=== PATIENT | female | born 1965 ===

== ENCOUNTER 2017-06-12 10:36 | Inpatient (IN) | payer MEDICAID ==
[2017-06-12 10:53] VITALS: BMI 26.2
[2017-06-12] MEDS ORDERED: Aspirin 325 mg EC Tablets PO STA (11:26)
[2017-06-12] MEDS ORDERED: Albuterol-Ipratrop 3 mg / 0.5 (3 ml) UD INH STA (11:27)
--- NOTE | 2017-06-12 11:28 | C.PDOC ---
History Of Present Illness 51 y/o female with PMHx of Asthma presents to ED with complaints of chest pain , sob and cough since yesterday with associated x2 episodes of vomiting. Patient states she has inhaler at home but did not improve symptoms which prompted visit to ED. Patient is speaking in full sentences and admits to chills , denies sick contacts, fever, diarrhea or any other complaints at this time. PMD: Dr. Vinicio Velazquez Time Seen by Provider: 06/12/17 11:04 Chief Complaint (Nursing): Shortness Of Breath History Per: Patient History/Exam Limitations: no limitations Onset/Duration Of Symptoms: Days Current Symptoms Are (Timing): Still Present Initiating Event: Upper Respiratory Illness Past Medical History Reviewed: Historical Data, Nursing Documentation, Vital Signs Vital Signs: Last Vital Signs Temp 98.0 F 06/12/17 16:06 Pulse 79 06/12/17 16:06 Resp 20 06/12/17 16:06 BP 110/68 06/12/17 16:06 Pulse Ox 97 06/12/17 16:06 - Medical History PMH: Asthma, HTN, Hypercholesterolemia Surgical History: Coronary Stent Family History: States: No Known Family Hx - Social History Hx Tobacco Use: No Hx Alcohol Use: No Hx Substance Use: No - Immunization History Hx Tetanus Toxoid Vaccination: No Hx Influenza Vaccination: No Hx Pneumococcal Vaccination: No Review Of Systems Constitutional: Negative for: Fever, Chills Cardiovascular: Positive for: Chest Pain Respiratory: Positive for: Cough, Shortness of Breath Gastrointestinal: Negative for: Nausea, Vomiting Skin: Negative for: Rash Physical Exam - Physical Exam Appears: Non-toxic, No Acute Distress Skin: Warm, Dry, No Rash Head: Atraumatic, Normacephalic Oral Mucosa: Moist Neck: Normal ROM, Supple Cardiovascular: Rhythm Regular Respiratory: Normal Breath Sounds, No Rales, No Rhonchi, No Wheezing Gastrointestinal/Abdominal: Soft, No Tenderness, No Guarding, No Rebound Extremity: Normal ROM, No Pedal Edema, Capillary Refill (<2 seconds) Neurological/Psych: Oriented x3, Normal Speech (Speaking in full sentences) ED Course And Treatment - Laboratory Results Result Diagrams: 06/12/17 11:47 06/12/17 11:47 ECG Rhythm: Sinus Tachycardia Interpretation Of ECG: Sinus tachycardia with premature supraventricular complexes Rate From EC O2 Sat by Pulse Oximetry: 97 (RA) Pulse Ox Interpretation: Normal - Radiology CXR: Read By Radiologist CXR Interpretation: Yes: Other (Mild biapical pleural thickening. Patchy bilateral lower lobe opacities may reflect atelectasis however developing pneumonia cannot be entirely excluded. Correlate clinically.) Medical Decision Making Medical Decision Making: Plan: Influenza Test, ECG, CXR, Blood work ordered Disposition Discussed With Dr.: Shilpi Hallman Doctor Will See Patient In The: Hospital - Disposition Disposition: HOSPITALIZED Disposition Time: 13:20 Condition: FAIR - Clinical Impression Clinical Impression: Pneumonia - PA / SHANK CUTTER / Resident Statement MD/DO has reviewed & agrees with the documentation as recorded. - Scribe Statement The provider has reviewed the documentation as recorded by the Herlindaibrhonda Blancas All medical record entries made by the Delmar were at my direction and personally dictated by me. I have reviewed the chart and agree that the record accurately reflects my personal performance of the history, physical exam, medical decision making, and the department course for this patient. I have also personally directed, reviewed, and agree with the discharge instructions and disposition.
[2017-06-12] MEDS ORDERED: Albuterol-Ipratrop 3 mg / 0.5 (3 ml) UD ONE (11:37)
[2017-06-12] MEDS ORDERED: Aspirin 325 mg EC Tablets PO ONE (11:37)
[2017-06-12 11:52] LABS: HEMOGLOBIN 12.9 g/dL (11.0-16.0)
[2017-06-12 11:57] LABS: BASO # 0.1 K/uL (0.0-0.2); BASO % 0.4 % (0.0-2.0); EOS # 0.1 K/uL (0.0-0.7); EOS % 0.5 % (0.0-4.0); MEAN CELL VOLUME 88.6 fL (81.0-99.0); MEAN CORPUSCULAR HEMOGLOBIN 30.2 pg (27.0-31.0); MEAN CORPUSCULAR HGB CONC 34.1 g/dL (33.0-37.0); MEAN PLATELET VOLUME 10.4 fL (7.2-11.7); MONO # 0.6 K/uL (0.0-0.8); MONO % 3.6 % (0.0-10.0); NEUT # 14.8 K/uL (1.8-7.0); NEUT % 89.5 % (50.0-75.0); PLATELET COUNT 237 K/uL (130-400); RBC 4.28 Mil/uL (3.80-5.20); RED CELL DISTRIBUTION WIDTH 13.1 % (11.5-14.5); WHITE BLOOD COUNT 16.6 K/uL (4.8-10.8)
[2017-06-12 12:03] LABS: ALB/GLOB RATIO 1.3 (1.0-2.1); ALBUMIN 4.4 g/dL (3.5-5.0); ALT/SGPT 31 U/L (9-52); AST/SGOT 26 U/L (14-36); BLOOD UREA NITROGEN 12 mg/dL (7-17); CALCIUM 9.1 mg/dl (8.6-10.4); GFR AFRICAN-AMERICAN > 60; GFR NON-AFRICAN AMERICAN > 60
--- NOTE | 2017-06-12 12:15 | RAD ---
HISTORY: cough sob, hx asthma COMPARISON: None available. TECHNIQUE: Chest PA and lateral FINDINGS: Examination limited by habitus. LUNGS: Mild biapical pleural thickening. Patchy bilateral lower lobe opacities. Please note that chest x-ray has limited sensitivity for the detection of pulmonary masses. PLEURA: No significant pleural effusion identified. No definite pneumothorax . CARDIOVASCULAR: Cardiomegaly. OSSEOUS STRUCTURES: No acute osseous abnormality identified. VISUALIZED UPPER ABDOMEN: Unremarkable. OTHER FINDINGS: None. IMPRESSION: Mild biapical pleural thickening. Patchy bilateral lower lobe opacities may reflect atelectasis however developing pneumonia cannot be entirely excluded. Correlate clinically.
[2017-06-12 12:28] LABS: EOSINOPHIL 1 % (0-4); LYMPHOCYTE 6 % (20-40); MONOCYTE 7 % (0-10); NEUTROPHIL 86 % (50-75); PLATELET ESTIMATE NORMAL (NORMAL); TOTAL CELLS COUNTED 100
[2017-06-12] MEDS ORDERED: Azithromycin 500 MG in Sodium Chloride 0.9% 250 ML IVPB STA (12:36)
[2017-06-12] MEDS ORDERED: cefTRIAXone IV 1 gm in Dextros 1 GM in Dextrose 5% In Water 50 ML IVPB STA (12:37)
[2017-06-12] MEDS ORDERED: cefTRIAXone IV 1 gm in Dextros 50 ML IVPB ONE (12:47)
[2017-06-12 16:07] VITALS: RESP 20
[2017-06-12] MEDS: Budesonide 0.5 mg/2 ml Inhal Susp UD INH SCH (21:20)
[2017-06-12] MEDS: Albuterol-Ipratrop 3 mg / 0.5 (3 ml) UD INH SCH (21:21)
[2017-06-12] MEDS: MethylPREDNISolone 40 mg Vial IVP SCH (21:46)
[2017-06-12] MEDS: (Novolog) Insulin Aspart, Recombinant 100 u/ml 10 ml vial SC SCH (22:50)
[2017-06-13] MEDS: Albuterol-Ipratrop 3 mg / 0.5 (3 ml) UD INH SCH ×4 (01:53→19:19)
[2017-06-13 07:25] LABS: HEMOGLOBIN 13.3 g/dL (11.0-16.0); MEAN CELL VOLUME 88.3 fL (81.0-99.0); MEAN PLATELET VOLUME 11.2 fL (7.2-11.7); RBC 4.43 Mil/uL (3.80-5.20); RED CELL DISTRIBUTION WIDTH 13.3 % (11.5-14.5); WHITE BLOOD COUNT 11.6 K/uL (4.8-10.8)
[2017-06-13] MEDS: (Novolog) Insulin Aspart, Recombinant 100 u/ml 10 ml vial SC SCH ×4 (08:17→21:32)
[2017-06-13 08:21] LABS: IRON 38 ug/dL (37-170)
[2017-06-13] MEDS: Budesonide 0.5 mg/2 ml Inhal Susp UD INH SCH ×2 (08:22→19:19)
[2017-06-13 08:23] LABS: BLOOD UREA NITROGEN 11 mg/dL (7-17); CALCIUM 9.6 mg/dl (8.6-10.4); GFR AFRICAN-AMERICAN > 60; GFR NON-AFRICAN AMERICAN > 60; HDL CHOLESTEROL 54 mg/dL (30-70)
[2017-06-13 08:41] LABS: LDL CHOLESTEROL 107 mg/dL (0-129)
[2017-06-13 08:49] LABS: % IRON SATURATION 12 (20-55); TOTAL IRON BINDING CAPACITY 322 ug/dL (250-450)
[2017-06-13 09:19] LABS: FOLATE > 20.0 ng/mL
--- NOTE | 2017-06-13 09:57 | HP ---
CHIEF COMPLAINT: Shortness of breath, coughing. HISTORY OF PRESENT ILLNESS: Ms. Tony Seo is a 51-year-old female with past medical history of asthma, came to the emergency room with chest pain, shortness of breath, coughing since yesterday associated with two episodes of vomiting. The patient states that she has inhaler at home, but it did not improve her symptoms which prompted her visit to emergency room. The patient is speaking in full sentence and admitted to be chills, denies sick contact. No diarrhea. PAST MEDICAL HISTORY: Asthma, hypertension, hypercholesterolemia. PAST SURGICAL HISTORY: Coronary artery stents. FAMILY HISTORY: Father and mother, noncontributory. HABITS: No smoking. No drugs. No ethanol. ALLERGIES: THE PATIENT IS NOT ALLERGIC WITH ANY MEDICATIONS. HOME MEDICATIONS: Reviewed by me. REVIEW OF SYSTEMS: The patient was seen and examined at the bedside also. No nausea, vomiting or diarrhea. Still coughing. Having shortness of breath. No fever. No chills. No hematuria. No hematochezia. PHYSICAL EXAMINATION: VITAL SIGNS: Temperature 99, pulse 80, blood pressure 111/64, respiratory rate 12 HEENT: Head: Normocephalic, atraumatic. Eyes: PERRLA. Extraocular muscles intact. Conjunctivae clear. Nose patent. Mucous membranes moist. NECK: Supple. No carotid bruits or thyromegaly. CHEST: Bilaterally symmetrical. HEART: S1, S2 positive. LUNGS: Clear to auscultation. ABDOMEN: Soft. Bowel sounds present. No organomegaly. EXTREMITIES: No edema, no cyanosis. NEUROLOGICAL: The patient is awake and alert, moving all four extremities. No focal deficits. LABORATORY DATA: White blood cells is 10.6, hemoglobin 12.9, hematocrit 38.0, platelet 237,000. Sodium 138, potassium 4.7, BUN 12, creatinine 0.6, glucose 124. Influenza type A and B is negative. ASSESSMENT AND PLAN: Ms. Tony Seo is a 51-year-old female came with coughing and shortness of breath. Her chest x-ray showed mild biapical pleural thickening of patchy bilateral lower lobe opacity may represent atelectasis; however; pneumonia cannot be entirely excluded, readmitted the patient, started on IV antibiotics. The patient's ID is Dr. Eisenberg, we called and consulted Dr. Mangia. The patient has history of hypertension and coronary artery disease, started Cozaar; hypercholesterolemia, started Crestor, albuterol and aspirin given. The patient is diabetic, started on metformin. Put on sliding scale. For deep venous thrombosis prophylaxis, given Lovenox. The patient was taking Plavix at home, restarted that. Put on Solu-Medrol. Gastrointestinal and deep venous thrombosis prophylaxis. Repeat labs. We will follow up. Katie Sandhu MD [facility]
[2017-06-13] MEDS ORDERED: BONE MEAL PO SCH (10:00)
[2017-06-13] MEDS ORDERED: VITAMIN D2 PO SCH (10:00)
[2017-06-13] MEDS: Enoxaparin 40 mg Syringe SC SCH (10:18)
[2017-06-13] MEDS: MethylPREDNISolone 40 mg Vial IVP SCH ×2 (10:18→21:34)
--- NOTE | 2017-06-13 11:08 | CARD ---
APPROVED REPORT EKG Measurement Heart [id number] <Conclusion> Sinus tachycardia with premature supraventricular complexes Otherwise normal ECG
[2017-06-13] MEDS ORDERED: Azithromycin 500 MG in Sodium Chloride 0.9% 250 ML IVPB SCH (13:00)
--- NOTE | 2017-06-13 13:17 | CP.PCM.CON ---
History of Present Illness - History of Present Illness History of Present Illness: Patient is a 51 year old female with a history of asthma, HTN, HLD who presented to the ER on 06/12/17 for complaints of 1 day history of chest pain, shortness of breath, cough associated with 2 episodes of vomiting. She used her inhaler at home, but she did not improve so she arrived at the ED. She is able to speak in full sentences. Recently was on vacation in the [place] for 2 weeks. Today, she states she no longer has chest pain, admits to feeling occasionally short of breath with cough productive of brownish sputum. Denies seeing red blood in sputum. She denies fever, chills, headache, abdominal pain, leg pain. PMH: asthma, HTN, HLD, vascular issues PSH: femoral bypass, appendectomy, ectopic , carotid stents Meds: see MAR Family hx: strong family hx of DM (mother, sister). Grandmother - asthma Social hx: no history of smoking. Drinks ETOH socially. Denies drug use. Allergies: NKDA Vascular surgeon: Dr. Gutiérrez in [place] Assessment and plan 51 year old female with history of asthma, HTN, HLD who was admitted for 1 day history of chest pain, dyspnea and cough. She was found to have an elevated white count with possible pnuemonia on CXR. Pulmonology was consulted for pneumonia. Pneumonia Afebrile 94% on RA WBC (06/12) 16.6 --> (06/13) 11.6 CXR Mild biapical pleural thickening. Patchy bilateral lower lobe opacities may reflect atelectasis however developing pneumonia cannot be entirely excluded. Correlate clinically F/u on CXR Negative for influenza A/B Blood culture pending Continue meds: Albuterol/Tiotropium 3ml INH R Q6 Pulmicort 0.5mg INH R Q 12 Solumedrol 40mg IV Q 12 Azithromycin 500mg IV Ceftriaxone 1g IV Past Patient History - Past Social History Smoking Status: Never Smoked - CARDIAC Hx Hypercholesterolemia: Yes Hx Hypertension: Yes - PULMONARY Hx Asthma: Yes - ENDOCRINE/METABOLIC Hx Endocrine Disorders: Yes Hx Diabetes Mellitus Type 2: Yes - PSYCHIATRIC Hx Substance Use: No - SURGICAL HISTORY Hx Coronary Stent: Yes - ANESTHESIA Hx Anesthesia: Yes Hx Anesthesia Reactions: No Meds Allergies/Adverse Reactions: Allergies Allergy/AdvReac Type Severity Reaction Status Date / Time No Known Allergies Allergy Verified 06/12/17 10:49 - Medications Medications: Current Medications Albuterol/Ipratropium (Duoneb 3 Mg/0.5 Mg (3 Ml) Ud) 3 ml INH RQ6 [facility] Last Admin: 06/13/17 08:22 Dose: 3 ml Amlodipine Besylate (Norvasc) 5 mg PO DAILY [facility] Last Admin: 06/13/17 10:19 Dose: 5 mg Budesonide (Pulmicort Respules) 0.5 mg INH RQ12 [facility] Last Admin: 06/13/17 08:22 Dose: 0.5 mg Clopidogrel Bisulfate (Plavix) 75 mg PO DAILY [facility] Last Admin: 06/13/17 10:18 Dose: 75 mg Enoxaparin Sodium (Lovenox) 40 mg SC DAILY [facility] Last Admin: 06/13/17 10:18 Dose: 40 mg Ceftriaxone Sodium 1 gm/ (Sodium Chloride) 100 mls @ 100 mls/hr IVPB DAILY [facility] Last Admin: 06/13/17 10:17 Dose: 100 mls/hr Azithromycin 500 mg/ Dextrose 250 mls @ 250 mls/hr IVPB Q24H [facility] Last Admin: 06/13/17 12:39 Dose: 250 mls/hr Insulin Aspart (Novolog) 0 unit SC ACHS [facility] PRN Reason: Protocol Last Admin: 06/13/17 11:53 Dose: Not Given Losartan Potassium (Cozaar) 100 mg PO DAILY [facility] Last Admin: 06/13/17 10:18 Dose: 100 mg Metformin HCl (Glucophage) 500 mg PO BID [facility] Last Admin: 06/13/17 10:18 Dose: 500 mg Methylprednisolone (Solu-Medrol) 40 mg IVP Q12 [facility] Last Admin: 06/13/17 10:18 Dose: 40 mg Pneumococcal Polyvalent Vaccine (Pneumovax 23 Vaccine) 0.5 ml IM .ONCE ONE Stop: 06/15/17 10:01 Rosuvastatin Calcium (Crestor) 40 mg PO HS [facility] Last Admin: 06/12/17 21:46 Dose: 40 mg Results - Vital Signs Recent Vital Signs: Last Vital Signs Temp 99.0 F 06/13/17 08:37 Pulse 92 H 06/13/17 08:37 Resp 20 06/13/17 08:37 BP 146/75 06/13/17 08:37 Pulse Ox 94 L 06/13/17 13:06 - Labs Result Diagrams: 06/13/17 07:12 06/13/17 07:12 Labs: Laboratory Results - last 24 hr 06/12/17 06/12/17 06/13/17 17:58 21:39 07:08 WBC RBC Hgb Hct MCV MCH MCHC RDW Plt Count MPV Sodium Potassium Chloride Carbon Dioxide Anion Gap BUN Creatinine Est GFR ( Amer) Est GFR (Non-Af Amer) POC Glucose (mg/dL) 102 126 H 135 H Random Glucose Hemoglobin A1c Calcium Iron TIBC % Saturation Triglycerides Cholesterol LDL Cholesterol Direct HDL Cholesterol Vitamin B12 Folate TSH 3rd Generation 06/13/17 06/13/17 06/13/17 07:12 07:12 07:12 WBC 11.6 H RBC 4.43 Hgb 13.3 Hct 39.1 MCV 88.3 MCH 30.0 MCHC 34.0 RDW 13.3 Plt Count 239 MPV 11.2 Sodium 136 Potassium 4.3 Chloride 101 Carbon Dioxide 26 Anion Gap 13 BUN 11 Creatinine 0.6 L Est GFR ( Amer) > 60 Est GFR (Non-Af Amer) > 60 POC Glucose (mg/dL) Random Glucose 154 H Hemoglobin A1c Calcium 9.6 Iron 38 TIBC 322 % Saturation 12 L Triglycerides 30 Cholesterol 187 LDL Cholesterol Direct 107 HDL Cholesterol 54 Vitamin B12 444 Folate > 20.0 TSH 3rd Generation 0.14 L 06/13/17 06/13/17 07:12 11:09 WBC RBC Hgb Hct MCV MCH MCHC RDW Plt Count MPV Sodium Potassium Chloride Carbon Dioxide Anion Gap BUN Creatinine Est GFR ( Amer) Est GFR (Non-Af Amer) POC Glucose (mg/dL) 132 H Random Glucose Hemoglobin A1c 6.1 Calcium Iron TIBC % Saturation Triglycerides Cholesterol LDL Cholesterol Direct HDL Cholesterol Vitamin B12 Folate TSH 3rd Generation
--- NOTE | 2017-06-13 16:14 | CP.PCM.CON ---
History of Present Illness - History of Present Illness History of Present Illness: 51 y/o female with PMHx of Asthma presents to ED with complaints of chest pain , sob and cough since yesterday with associated x2 episodes of vomiting. Patient states she has inhaler at home but did not improve symptoms which prompted visit to ED. Patient is speaking in full sentences and admits to chills , denies sick contacts, fever, diarrhea or any other complaints at this time. PMD: Dr. Vinicio Velazquez admitted with leukocytosis , bronchopneumonia with acute exac asthma - Medical History PMH: Asthma, HTN, Hypercholesterolemia Surgical History: Coronary Stent Family History: States: No Known Family Hx Review of Systems - Constitutional Constitutional: As Per HPI - EENT Eyes: absent: As Per HPI, Blind Spots, Blurred Vision, Change in Vision, Decreased Night Vision, Diplopia, Discharge, Dry Eye, Exophthalmos, Floaters, Irritation, Itchy Eyes, Loss of Peripheral Vision, Pain, Photophobia, Requires Corrective Lenses, Sees Flashes, Spots in Vision, Tunnel Vision, Other Visual Disturbances, Loss of Vision, Other Ears: absent: As Per HPI, Decreased Hearing, Ear Discharge, Ear Pain, Tinnitus, Abnormal Hearing, Disequilibrium, Dizziness, Other Nose/Mouth/Throat: absent: As Per HPI, Epistaxis, Nasal Congestion, Nasal Discharge, Nasal Obstruction, Nasal Trauma, Nose Pain, Post Nasal Drip, Sinus Pain, Sinus Pressure, Bleeding Gums, Change in Voice, Dental Pain, Dry Mouth, Dysphagia, Halitosis, Hoarsness, Lip Swelling, Mouth Lesions, Mouth Pain, Odynophagia, Sore Throat, Throat Swelling, Tongue Swelling, Facial Pain, Neck Pain, Neck Mass, Other - Breasts Breasts: absent: As Per HPI, Change in Shape, Mass, Pain, Nipple Discharge, Nipple Inversion, Skin Changes, Swelling, Other - Cardiovascular Cardiovascular: absent: As Per HPI, Acrocyanosis, Chest Pain, Chest Pain at Rest , Chest Pain with Activity, Claudication, Diaphoresis, Dyspnea, Dyspnea on Exertion, Edema, Irregular Heart Rhythm, Pain Radiating to Arm/Neck/Jaw, Leg Edema, Leg Ulcers, Lightheadedness, Orthopnea, Palpitations, Paroxysmal Nocturnal Dyspnea, Pedal Edema, Radiating Pain, Rapid Heart Rate, Slow Heart Rate, Syncope, Other - Respiratory Respiratory: As Per HPI, Cough, Dyspnea. absent: Hemoptysis - Gastrointestinal Gastrointestinal: absent: As Per HPI, Abdominal Pain, Belching, Bloating, Change in Bowel Habits, Change in Stool Character, Coffee Ground Emesis, Constipation, Cramping, Diarrhea, Dyspepsia, Dysphagia, Early Satiety, Excessive Flatus, Fecal Incontinence, Heartburn, Hematemesis, Hematochezia, Loose Stools, Melena, Nausea, Odynophagia, Temesmus, Vomiting, Other - Genitourinary Genitourinary: absent: As Per HPI, Change in Urinary Stream, Difficulty Urinating, Dysuria, Flank Pain, Hematuria, Pyuria, Nocturia, Urinary Incontinence, Urinary Frequency, Urinary Hesitance, Urinary Urgency, Voiding Freq/Small Amts, Freq UTI, Hx Renal/Bladder Calculi, Hx /Renal Surgery, Bladder Distension, Other - Reproductive: Female Reproductive:Female: absent: As Per HPI, Amenorrhea, Amenorrhea/ Control, Currently Menstual, Cycle <21 Days, Cycle >35 Days, Cycle Variable, Menses 1-7 Days, Menses >/= 8 Days, Menses Variable, Cycle > 4 Weeks Between, No Menses for 6 Months, Heavy Menses, Light Menses, Normal Menses, Spotting Between Cycles , S/P Hysterectomy, Menopausal, Post Menopausal, Premenarche, Abnormal Vaginal Bleeding, Dysmenorrhea, Dyspareunia, Genital Lesions, Genital Pruritis, Pelvic Pain, Prolapse Symptoms, Sexual Dysfunction, Vaginal Discharge, Vaginal Dryness , Vaginal Odor, Vaginal Pruritis, Other - Menstruation Menstruation: absent: As Per HPI, Amenorrhea, Amenorrhea/ Control, Currently Menstual, Cycle <21 Days, Cycle >35 Days, Cycle Variable, Menses 1-7 Days, Menses >/= 8 Days, Menses Variable, Cycle > 4 Weeks Between, No Menses for 6 Months, Heavy Menses, Light Menses, Normal Menses, Spotting Between Cycles , S/P Hysterectomy, Menopausal, Post Menopausal, Premenarche, Abnormal Vaginal Bleeding, Dysmenorrhea, Other - Musculoskeletal Musculoskeletal: absent: As Per HPI, Abnormal Gait, Arthralgias, Atrophy, Back Pain, Deformity, Joint Swelling, Limited Range of Motion, Loss of Height, Muscle Cramps, Muscle Weakness, Myalgias, Neck Pain, Numbness, Radiating Pain into Limb, Stiffness, Tingling, Other - Integumentary Integumentary: absent: As Per HPI, Acne, Alopecia, Bleeding Lesions, Change in Hair, Change in Nails, Change in Pigmentation, Changing Lesions, Dry Skin, Erythema, Furuncle, Hirsutism, Lesions, New Lesions, Non-Healing Lesions, Photosensitivity, Pruritus, Rash, Skin Pain, Skin Ulcer, Sores, Striae, Swelling , Unusual Bruising, Wounds, Jaundice, Other - Neurological Neurological: absent: As Per HPI, Abnormal Gait, Abnormal Hearing, Abnormal Movements, Abnormal Speech, Behavioral Changes, Burning Sensations, Confusion, Convulsions, Disequilibrium, Dizziness, Numbness, Focal Weakness, Frequent Falls , Headaches, Lack of Coordination, Loss of Vision, Memory Loss, Paresthesias, Radicular Pain, Restless Legs, Sensory Deficit, Syncope, Tingling, Tremor, Vertigo, Weakness, Other Visual Disturbances, Other - Psychiatric Psychiatric: absent: As Per HPI, Abnormal Sleep Pattern, Anhedonia, Anxiety, Auditory Hallucinations, Behavioral Changes, Change in Appetite, Change in Libido, Confusion, Depression, Difficulty Concentrating, Hallucinations, Homicidal Ideation, Hopelessness, Irritability, Memory Loss, Mood Swings, Panic Attacks, Paranoia, Suicidal Ideation, Visual Hallucinations, Tactile Hallucinations, Other - Hematologic/Lymphatic Hematologic: absent: As Per HPI, Easy Bleeding, Easy Bruising, Lymphadenopathy, Other Past Patient History - Past Social History Smoking Status: Never Smoked - CARDIAC Hx Hypercholesterolemia: Yes Hx Hypertension: Yes - PULMONARY Hx Asthma: Yes - ENDOCRINE/METABOLIC Hx Endocrine Disorders: Yes Hx Diabetes Mellitus Type 2: Yes - PSYCHIATRIC Hx Substance Use: No - SURGICAL HISTORY Hx Coronary Stent: Yes - ANESTHESIA Hx Anesthesia: Yes Hx Anesthesia Reactions: No Meds Allergies/Adverse Reactions: Allergies Allergy/AdvReac Type Severity Reaction Status Date / Time No Known Allergies Allergy Verified 06/12/17 10:49 - Medications Medications: Current Medications Albuterol/Ipratropium (Duoneb 3 Mg/0.5 Mg (3 Ml) Ud) 3 ml INH RQ6 [facility] Last Admin: 06/13/17 13:55 Dose: 3 ml Amlodipine Besylate (Norvasc) 5 mg PO DAILY [facility] Last Admin: 06/13/17 10:19 Dose: 5 mg Budesonide (Pulmicort Respules) 0.5 mg INH RQ12 [facility] Last Admin: 06/13/17 08:22 Dose: 0.5 mg Clopidogrel Bisulfate (Plavix) 75 mg PO DAILY [facility] Last Admin: 06/13/17 10:18 Dose: 75 mg Enoxaparin Sodium (Lovenox) 40 mg SC DAILY [facility] Last Admin: 06/13/17 10:18 Dose: 40 mg Ceftriaxone Sodium 1 gm/ (Sodium Chloride) 100 mls @ 100 mls/hr IVPB DAILY [facility] Last Admin: 06/13/17 10:17 Dose: 100 mls/hr Azithromycin 500 mg/ Dextrose 250 mls @ 250 mls/hr IVPB Q24H [facility] Last Admin: 06/13/17 12:39 Dose: 250 mls/hr Insulin Aspart (Novolog) 0 unit SC ACHS [facility] PRN Reason: Protocol Last Admin: 06/13/17 11:53 Dose: Not Given Losartan Potassium (Cozaar) 100 mg PO DAILY [facility] Last Admin: 06/13/17 10:18 Dose: 100 mg Metformin HCl (Glucophage) 500 mg PO BID [facility] Last Admin: 06/13/17 10:18 Dose: 500 mg Methylprednisolone (Solu-Medrol) 40 mg IVP Q12 [facility] Last Admin: 06/13/17 10:18 Dose: 40 mg Pneumococcal Polyvalent Vaccine (Pneumovax 23 Vaccine) 0.5 ml IM .ONCE ONE Stop: 06/15/17 10:01 Rosuvastatin Calcium (Crestor) 40 mg PO [facility] Last Admin: 06/12/17 21:46 Dose: 40 mg Physical Exam - Constitutional Appears: Non-toxic, Chronically Ill - Head Exam Head Exam: NORMOCEPHALIC - Eye Exam Eye Exam: PERRL. absent: Scleral icterus - ENT Exam ENT Exam: Mucous Membranes Dry, Normal External Ear Exam - Neck Exam Neck exam: Negative for: Lymphadenopathy - Respiratory Exam Respiratory Exam: Decreased Breath Sounds, Prolonged Expiratory Phase, Wheezes - Cardiovascular Exam Cardiovascular Exam: REGULAR RHYTHM, +S1, +S2 - GI/Abdominal Exam GI & Abdominal Exam: Diminished Bowel Sounds, Soft. absent: Tenderness - Rectal Exam Rectal Exam: Deferred - Exam Exam: NORMAL INSPECTION - Extremities Exam Extremities exam: Positive for: pedal pulses present. Negative for: calf tenderness, pedal edema, tenderness - Back Exam Back exam: absent: CVA tenderness (L), CVA tenderness (R), paraspinal tenderness - Neurological Exam Neurological exam: Alert, CN II-XII Intact, Oriented x3, Reflexes Normal - Psychiatric Exam Psychiatric exam: Normal Mood - Skin Skin Exam: Dry, Intact Results - Vital Signs Recent Vital Signs: Last Vital Signs Temp 99.0 F 06/13/17 08:37 Pulse 92 H 06/13/17 08:37 Resp 20 06/13/17 08:37 BP 146/75 06/13/17 08:37 Pulse Ox 94 L 06/13/17 13:06 - Labs Result Diagrams: 06/13/17 07:12 06/13/17 07:12 Labs: Laboratory Results - last 24 hr 06/12/17 06/12/17 06/13/17 17:58 21:39 07:08 WBC RBC Hgb Hct MCV MCH MCHC RDW Plt Count MPV Sodium Potassium Chloride Carbon Dioxide Anion Gap BUN Creatinine Est GFR ( Amer) Est GFR (Non-Af Amer) POC Glucose (mg/dL) 102 126 H 135 H Random Glucose Hemoglobin A1c Calcium Iron TIBC % Saturation Triglycerides Cholesterol LDL Cholesterol Direct HDL Cholesterol Vitamin B12 Folate TSH 3rd Generation 06/13/17 06/13/17 06/13/17 07:12 07:12 07:12 WBC 11.6 H RBC 4.43 Hgb 13.3 Hct 39.1 MCV 88.3 MCH 30.0 MCHC 34.0 RDW 13.3 Plt Count 239 MPV 11.2 Sodium 136 Potassium 4.3 Chloride 101 Carbon Dioxide 26 Anion Gap 13 BUN 11 Creatinine 0.6 L Est GFR ( Amer) > 60 Est GFR (Non-Af Amer) > 60 POC Glucose (mg/dL) Random Glucose 154 H Hemoglobin A1c Calcium 9.6 Iron 38 TIBC 322 % Saturation 12 L Triglycerides 30 Cholesterol 187 LDL Cholesterol Direct 107 HDL Cholesterol 54 Vitamin B12 444 Folate > 20.0 TSH 3rd Generation 0.14 L 06/13/17 06/13/17 07:12 11:09 WBC RBC Hgb Hct MCV MCH MCHC RDW Plt Count MPV Sodium Potassium Chloride Carbon Dioxide Anion Gap BUN Creatinine Est GFR ( Amer) Est GFR (Non-Af Amer) POC Glucose (mg/dL) 132 H Random Glucose Hemoglobin A1c 6.1 Calcium Iron TIBC % Saturation Triglycerides Cholesterol LDL Cholesterol Direct HDL Cholesterol Vitamin B12 Folate TSH 3rd Generation Assessment & Plan (1) Pneumonia Status: Acute (2) Urinary tract infection Status: Acute - Assessment and Plan (Free Text) Assessment: acute exac asthma r/o pneumonia await cultures cont iv antibiotics follow up cxr
--- NOTE | 2017-06-13 23:10 | CP.PCM.PN ---
<Conchita Ghotra - Last Filed: 06/14/17 19:42> Subjective - Date & Time of Evaluation Date of Evaluation: 06/13/17 Time of Evaluation: 09:00 - Subjective Subjective: Chief complaint: SOB, coughing 51 yr female w/ history of asthma, HTN, Hypercholesterolemia, & CAD w/ stents. Pt was seen at the bedside on 06/13/17. She reports some chest palpitations and cough. She denies any fever, chills, n/v, diarrhea, constipation, urinary changes or distress. Objective - Vital Signs/Intake and Output Vital Signs (last 24 hours): Temp Pulse Resp BP Pulse Ox 98.1 F 92 H 20 99/61 L 95 06/13/17 16:09 06/13/17 16:09 06/13/17 16:09 06/13/17 16:09 06/13/17 16:09 Intake and Output: 06/13/17 06/14/17 18:59 06:59 Intake Total 830 Balance 830 - Medications Medications: Current Medications Albuterol/Ipratropium (Duoneb 3 Mg/0.5 Mg (3 Ml) Ud) 3 ml INH RQ6 [facility] Last Admin: 06/13/17 19:19 Dose: 3 ml Amlodipine Besylate (Norvasc) 5 mg PO DAILY [facility] Last Admin: 06/13/17 10:19 Dose: 5 mg Budesonide (Pulmicort Respules) 0.5 mg INH RQ12 [facility] Last Admin: 06/13/17 19:19 Dose: 0.5 mg Clopidogrel Bisulfate (Plavix) 75 mg PO DAILY [facility] Last Admin: 06/13/17 10:18 Dose: 75 mg Enoxaparin Sodium (Lovenox) 40 mg SC DAILY [facility] Last Admin: 06/13/17 10:18 Dose: 40 mg Ceftriaxone Sodium 1 gm/ (Sodium Chloride) 100 mls @ 100 mls/hr IVPB DAILY [facility] Last Admin: 06/13/17 10:17 Dose: 100 mls/hr Azithromycin 500 mg/ Dextrose 250 mls @ 250 mls/hr IVPB Q24H [facility] Last Admin: 06/13/17 12:39 Dose: 250 mls/hr Insulin Aspart (Novolog) 0 unit SC ACHS [facility] PRN Reason: Protocol Last Admin: 01/19/18 21:32 Dose: Not Given Losartan Potassium (Cozaar) 100 mg PO DAILY [facility] Last Admin: 06/13/17 10:18 Dose: 100 mg Metformin HCl (Glucophage) 500 mg PO BID [facility] Last Admin: 06/13/17 17:42 Dose: 500 mg Methylprednisolone (Solu-Medrol) 40 mg IVP Q12 [facility] Last Admin: 06/13/17 21:34 Dose: 40 mg Pneumococcal Polyvalent Vaccine (Pneumovax 23 Vaccine) 0.5 ml IM .ONCE ONE Stop: 06/15/17 10:01 Rosuvastatin Calcium (Crestor) 40 mg PO HS [facility] Last Admin: 06/13/17 21:29 Dose: 40 mg - Labs Labs: 06/13/17 07:12 06/13/17 07:12 - Constitutional Appears: Well - Head Exam Head Exam: ATRAUMATIC, NORMAL INSPECTION, NORMOCEPHALIC - Eye Exam Eye Exam: EOMI, Normal appearance, PERRL Pupil Exam: NORMAL ACCOMODATION, PERRL - ENT Exam ENT Exam: Mucous Membranes Moist - Neck Exam Neck Exam: Full ROM, Normal Inspection. absent: Lymphadenopathy - Respiratory Exam Respiratory Exam: Decreased Breath Sounds Additional comments: cough. SOB noted. - Cardiovascular Exam Cardiovascular Exam: REGULAR RHYTHM, +S1, +S2. absent: Murmur - GI/Abdominal Exam GI & Abdominal Exam: Soft, Normal Bowel Sounds. absent: Tenderness - Back Exam Back Exam: NORMAL INSPECTION - Neurological Exam Neurological Exam: Alert, Awake, CN II-XII Intact, Normal Gait, Oriented x3 - Psychiatric Exam Psychiatric exam: Normal Affect, Normal Mood - Skin Skin Exam: Dry, Intact, Normal Color, Warm Assessment and Plan (1) Dehydration Status: Acute (2) Hyperthyroidism Status: Acute (3) Pneumonia Status: Acute (4) Cough Status: Acute (5) Palpitations Status: Acute - Assessment and Plan (Free Text) Plan: IV zithromycin, rocephin. IV solumedryl. Blood cultures drawn NEGATIVE. Labs ordered. Will continue to round on patient. Consults: ID - Dr. Eisenberg Pulmonary - Dr. Rudolph Roper Reviewed: CXR = mild biapical pleural thickening. Patchy bilateral lower lobe opacities may reflect atelectasis, developing pneumonia ECG = ST w/ premature supraventricular complexes <Katie Sandhu - Last Filed: 06/15/17 10:36> Objective - Vital Signs/Intake and Output Vital Signs (last 24 hours): Temp Pulse Resp BP Pulse Ox 98.6 F 72 20 115/65 94 L 06/15/17 08:00 06/15/17 08:00 06/15/17 08:00 06/15/17 08:00 06/15/17 08:00 Intake and Output: 06/15/17 06/15/17 06:59 18:59 Intake Total 280 Balance 280 - Medications Medications: Current Medications Albuterol/Ipratropium (Duoneb 3 Mg/0.5 Mg (3 Ml) Ud) 3 ml INH RQ6 [facility] Last Admin: 06/15/17 06:59 Dose: Not Given Amlodipine Besylate (Norvasc) 5 mg PO DAILY [facility] Last Admin: 06/14/17 10:37 Dose: 5 mg Budesonide (Pulmicort Respules) 0.5 mg INH RQ12 [facility] Last Admin: 06/15/17 06:59 Dose: Not Given Clopidogrel Bisulfate (Plavix) 75 mg PO DAILY [facility] Last Admin: 06/14/17 10:37 Dose: 75 mg Enoxaparin Sodium (Lovenox) 40 mg SC DAILY [facility] Last Admin: 06/14/17 10:37 Dose: 40 mg Ceftriaxone Sodium 1 gm/ (Sodium Chloride) 100 mls @ 100 mls/hr IVPB DAILY [facility] Last Admin: 06/14/17 10:38 Dose: 100 mls/hr Azithromycin 500 mg/ Dextrose 250 mls @ 250 mls/hr IVPB Q24H [facility] Last Admin: 06/14/17 12:26 Dose: 250 mls/hr Insulin Aspart (Novolog) 0 unit SC ACHS [facility] PRN Reason: Protocol Last Admin: 06/15/17 07:35 Dose: Not Given Losartan Potassium (Cozaar) 100 mg PO DAILY [facility] Last Admin: 06/14/17 10:37 Dose: 100 mg Metformin HCl (Glucophage) 500 mg PO BID [facility] Last Admin: 06/14/17 17:21 Dose: 500 mg Methylprednisolone (Solu-Medrol) 40 mg IVP Q12 [facility] Last Admin: 06/14/17 21:38 Dose: 40 mg Rosuvastatin Calcium (Crestor) 40 mg PO HS [facility] Last Admin: 06/14/17 21:38 Dose: 40 mg - Labs Labs: 06/13/17 07:12 06/13/17 07:12 Assessment and Plan - Assessment and Plan (Free Text) Plan: 51 yr female w/ history of asthma, HTN, Hypercholesterolemia, & CAD w/ stents. Pt was seen at the bedside on 06/13/17. She reports some chest palpitations and cough. She denies any fever, chills, n/v, diarrhea, constipation, urinary changes or distress. noted all above , agreed all above . chart , meds noted . dr Eisenberg and dr roper notes noted , will f/u
[2017-06-14] MEDS: Albuterol-Ipratrop 3 mg / 0.5 (3 ml) UD INH SCH ×4 (01:59→19:13)
[2017-06-14] MEDS: Budesonide 0.5 mg/2 ml Inhal Susp UD INH SCH ×2 (07:17→19:13)
[2017-06-14] MEDS: (Novolog) Insulin Aspart, Recombinant 100 u/ml 10 ml vial SC SCH ×5 (08:12→22:40)
[2017-06-14] MEDS: MethylPREDNISolone 40 mg Vial IVP SCH ×2 (10:37→21:38)
[2017-06-14] MEDS: Enoxaparin 40 mg Syringe SC SCH (10:37)
--- NOTE | 2017-06-14 19:50 | CP.PCM.PN ---
Subjective - Date & Time of Evaluation Date of Evaluation: 06/14/17 Time of Evaluation: 16:00 - Subjective Subjective: The patient seen and examined Slight cough Breathing much improved Afebrile Being treated for an pneumonia Continue antibiotics followup chest xray Objective - Vital Signs/Intake and Output Vital Signs (last 24 hours): Temp Pulse Resp BP Pulse Ox 98.1 F 61 20 99/62 L 97 06/14/17 15:15 06/14/17 15:15 06/14/17 15:15 06/14/17 15:15 06/14/17 15:15 Intake and Output: 06/14/17 06/15/17 18:59 06:59 Intake Total 830 Balance 830 - Medications Medications: Current Medications Albuterol/Ipratropium (Duoneb 3 Mg/0.5 Mg (3 Ml) Ud) 3 ml INH RQ6 [facility] Last Admin: 06/14/17 19:13 Dose: 3 ml Amlodipine Besylate (Norvasc) 5 mg PO DAILY [facility] Last Admin: 06/14/17 10:37 Dose: 5 mg Budesonide (Pulmicort Respules) 0.5 mg INH RQ12 [facility] Last Admin: 06/14/17 19:13 Dose: 0.5 mg Clopidogrel Bisulfate (Plavix) 75 mg PO DAILY [facility] Last Admin: 06/14/17 10:37 Dose: 75 mg Enoxaparin Sodium (Lovenox) 40 mg SC DAILY [facility] Last Admin: 06/14/17 10:37 Dose: 40 mg Ceftriaxone Sodium 1 gm/ (Sodium Chloride) 100 mls @ 100 mls/hr IVPB DAILY [facility] Last Admin: 06/14/17 10:38 Dose: 100 mls/hr Azithromycin 500 mg/ Dextrose 250 mls @ 250 mls/hr IVPB Q24H [facility] Last Admin: 06/14/17 12:26 Dose: 250 mls/hr Insulin Aspart (Novolog) 0 unit SC ACHS [facility] PRN Reason: Protocol Last Admin: 06/14/17 16:50 Dose: Not Given Losartan Potassium (Cozaar) 100 mg PO DAILY [facility] Last Admin: 06/14/17 10:37 Dose: 100 mg Metformin HCl (Glucophage) 500 mg PO BID [facility] Last Admin: 06/14/17 17:21 Dose: 500 mg Methylprednisolone (Solu-Medrol) 40 mg IVP Q12 [facility] Last Admin: 06/14/17 10:37 Dose: 40 mg Pneumococcal Polyvalent Vaccine (Pneumovax 23 Vaccine) 0.5 ml IM .ONCE ONE Stop: 06/15/17 10:01 Rosuvastatin Calcium (Crestor) 40 mg PO HS [facility] Last Admin: 06/13/17 21:29 Dose: 40 mg - Labs Labs: 06/13/17 07:12 06/13/17 07:12
[2017-06-15] MEDS: Albuterol-Ipratrop 3 mg / 0.5 (3 ml) UD INH SCH ×4 (02:41→19:16)
[2017-06-15] MEDS: Budesonide 0.5 mg/2 ml Inhal Susp UD INH SCH ×2 (06:59→19:16)
[2017-06-15] MEDS: (Novolog) Insulin Aspart, Recombinant 100 u/ml 10 ml vial SC SCH ×4 (07:35→21:33)
[2017-06-15] MEDS ORDERED: Influenza Vaccine 60 mcg/0.5 mL SYR (4YR UP) IM ONE (10:00)
[2017-06-15] MEDS ORDERED: Pneumococcal 23-Valent Vaccine IM ONE (10:00)
[2017-06-15] MEDS: MethylPREDNISolone 40 mg Vial IVP SCH (10:36)
[2017-06-15] MEDS: Enoxaparin 40 mg Syringe SC SCH (10:37)
[2017-06-15] MEDS ORDERED: MethylPREDNISolone 40 mg Vial IVP SCH (12:16)
--- NOTE | 2017-06-15 15:31 | CP.PCM.PN ---
Subjective - Date & Time of Evaluation Date of Evaluation: 06/15/17 Time of Evaluation: 09:00 - Subjective Subjective: Slight cough Breathing much improved Afebrile Being treated for an pneumonia Continue antibiotics followup chest xray Objective - Vital Signs/Intake and Output Vital Signs (last 24 hours): Temp Pulse Resp BP Pulse Ox 98.6 F 72 20 115/65 94 L 06/15/17 08:00 06/15/17 08:00 06/15/17 08:00 06/15/17 08:00 06/15/17 08:00 Intake and Output: 06/15/17 06/15/17 06:59 18:59 Intake Total 280 830 Balance 280 830 - Medications Medications: Current Medications Albuterol/Ipratropium (Duoneb 3 Mg/0.5 Mg (3 Ml) Ud) 3 ml INH RQ6 [facility] Last Admin: 06/15/17 13:47 Dose: 3 ml Amlodipine Besylate (Norvasc) 5 mg PO DAILY [facility] Last Admin: 06/15/17 10:36 Dose: 5 mg Budesonide (Pulmicort Respules) 0.5 mg INH RQ12 [facility] Last Admin: 06/15/17 06:59 Dose: Not Given Clopidogrel Bisulfate (Plavix) 75 mg PO DAILY [facility] Last Admin: 06/15/17 10:36 Dose: 75 mg Enoxaparin Sodium (Lovenox) 40 mg SC DAILY [facility] Last Admin: 06/15/17 10:37 Dose: 40 mg Ceftriaxone Sodium 1 gm/ (Sodium Chloride) 100 mls @ 100 mls/hr IVPB DAILY [facility] Last Admin: 06/15/17 10:39 Dose: 100 mls/hr Azithromycin 500 mg/ Dextrose 250 mls @ 250 mls/hr IVPB Q24H [facility] Last Admin: 06/15/17 12:11 Dose: 250 mls/hr Insulin Aspart (Novolog) 0 unit SC ACHS [facility] PRN Reason: Protocol Last Admin: 06/15/17 12:17 Dose: Not Given Losartan Potassium (Cozaar) 100 mg PO DAILY [facility] Last Admin: 06/15/17 10:36 Dose: 100 mg Metformin HCl (Glucophage) 500 mg PO BID [facility] Last Admin: 06/15/17 10:36 Dose: 500 mg Methylprednisolone (Solu-Medrol) 20 mg IVP Q12 [facility] Rosuvastatin Calcium (Crestor) 40 mg PO HS [facility] Last Admin: 06/14/17 21:38 Dose: 40 mg - Labs Labs: 06/13/17 07:12 06/13/17 07:12 - Constitutional Appears: Non-toxic, Chronically Ill - Head Exam Head Exam: NORMOCEPHALIC - Eye Exam Eye Exam: PERRL. absent: Scleral icterus - ENT Exam ENT Exam: Mucous Membranes Dry - Neck Exam Neck Exam: absent: Lymphadenopathy - Respiratory Exam Respiratory Exam: Decreased Breath Sounds - Cardiovascular Exam Cardiovascular Exam: REGULAR RHYTHM - GI/Abdominal Exam GI & Abdominal Exam: Distended, Soft - Rectal Exam Rectal Exam: Deferred - Exam Exam: NORMAL INSPECTION - Extremities Exam Extremities Exam: absent: Pedal Edema - Back Exam Back Exam: absent: CVA tenderness (L), CVA tenderness (R) Assessment and Plan (1) Pneumonia Status: Acute (2) Urinary tract infection Status: Acute - Assessment and Plan (Free Text) Assessment: cont IV antibiotics
--- NOTE | 2017-06-15 21:19 | PN ---
DATE: 06/14/2017 SUBJECTIVE: Patient is a 51-year-old female. Patient was seen and examined at bedside on 06/14/2017. Cough is better. Shortness of breath is better. No fever. Getting antibiotics. Did bowel movement. No headache. No dizziness. No chest pain. No palpitation. No hematuria. No hematochezia. PHYSICAL EXAMINATION: VITAL SIGNS: Temperature 98.1, pulse 61, respiratory rate 20, blood pressure 97/52, pulse oximetry 97. HEENT: Head: Normocephalic and atraumatic. Eyes: PERRLA. Extraocular muscles intact. Conjunctivae clear. Nose: Patent. Mucous membranes moist. NECK: Supple. No carotid bruits. No JVD or thyromegaly. CHEST: Bilaterally symmetrical. HEART: S1 and S2 positive. LUNGS: Clear to auscultation. ABDOMEN: Soft. Bowel sounds present. No organomegaly. EXTREMITIES: No edema. No cyanosis. NEUROLOGIC: Patient is awake and alert. Moving all four extremities. No focal deficits. MEDICATIONS: DuoNeb, Norvasc, Pulmicort, Plavix, Lovenox, ceftriaxone, azithromycin, insulin, Cozaar, metformin, Solu-Medrol, Crestor. LABORATORY DATA: White blood cell is 11.6, hemoglobin 13.3, hematocrit 39.1, and platelets 239. Sodium 136, potassium 4.1, BUN 11, creatinine 0.6, glucose 154. ASSESSMENT AND PLAN: Ms. 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 Tom Eisenberg, Infectious Diseases;history of asthma; hypertension; hypercholesterolemia; has acute exacerbation of asthma. Chest x-ray shows mild biapical pleural thickening of patchy bilateral lower lobe opacities, may present atelectasis; however, pneumonia cannot be ruled out, can be in early stages. History of coronary artery disease. She is on Cozaar. gastrointestinal and deep venous thrombosis prophylaxis. Repeat labs. We will follow this. Katie Sandhu MD [facility] # [id number] [facility]
--- NOTE | 2017-06-16 02:38 | PN ---
DATE: SUBJECTIVE: The patient is a 51-year-old female. The patient is seen and examined at the bedside, looking comfortable. Breathing is better. Cough is better. Chest pain is better. No fever. No headache or dizziness. No hematuria or hematochezia. No dyspnea or shortness of breath. PHYSICAL EXAMINATION: VITAL SIGNS: Temperature 98.6, pulse 72, respiratory rate 20, blood pressure 115/65, and pulse oximetry 94%. HEENT: Head: Normocephalic, atraumatic. Eyes: PERRLA. Extraocular movements are intact. Conjunctivae clear. Nose patent. NECK: Supple. No carotid bruit. No JVD or thyromegaly. CHEST: Bilaterally symmetrical. HEART: S1 and S2 positive. LUNGS: Clear to auscultation. ABDOMEN: Soft. Bowel sounds are present. No organomegaly. EXTREMITIES: No edema. No cyanosis. NEUROLOGIC: The patient is awake and alert, moving all four extremities, no focal deficits. LABORATORY DATA: White blood cells 11.6, hemoglobin 13.3, hematocrit 39.1, and platelets 239. Sodium 136, potassium 4.3, BUN 11, creatinine 0.6, and glucose 154. MEDICATIONS: DuoNeb, Norvasc, Pulmicort, Plavix, Lovenox, ceftriaxone, azithromycin, insulin, Cozaar, metformin, Solu-Medrol, Crestor. ASSESSMENT AND PLAN: Ms. Rayray Jimenez is a 51-year-old lady with leukocytosis, hyperglycemia, has pneumonia, and urinary tract infection, getting intravenous antibiotics as per Dr. Tom Eisenberg; seen by Dr. Reilly Brandt, manager marketing communication; history of leukocytosis, has history of asthma, hypertension, and hypercholesterolemia, came with exacerbation of asthma and pneumonia. Chest x-ray shows mild biapical pleural thickening of patchy nature bilaterally, lower lobe opacities also. Gastrointestinal and deep venous thrombosis prophylaxis. We will follow up. Katie Sandhu MD
[2017-06-16] MEDS: Albuterol-Ipratrop 3 mg / 0.5 (3 ml) UD INH SCH ×3 (03:02→13:59)
[2017-06-16 06:21] LABS: MEAN CELL VOLUME 88.2 fL (81.0-99.0); MEAN PLATELET VOLUME 10.4 fL (7.2-11.7); RBC 4.34 Mil/uL (3.80-5.20); RED CELL DISTRIBUTION WIDTH 12.8 % (11.5-14.5); WHITE BLOOD COUNT 10.6 K/uL (4.8-10.8)
[2017-06-16 06:42] LABS: BLOOD UREA NITROGEN 16 mg/dL (7-17); CALCIUM 8.8 mg/dl (8.6-10.4); GFR AFRICAN-AMERICAN > 60; GFR NON-AFRICAN AMERICAN > 60
[2017-06-16] MEDS: Budesonide 0.5 mg/2 ml Inhal Susp UD INH SCH (07:09)
[2017-06-16 07:53] VITALS: BP 111/72; PULSE 62; TEMP 97.9; O2SAT 97
[2017-06-16] MEDS: (Novolog) Insulin Aspart, Recombinant 100 u/ml 10 ml vial SC SCH ×2 (08:20→12:55)
[2017-06-16] MEDS: Enoxaparin 40 mg Syringe SC SCH (09:45)
[2017-06-16] MEDS ORDERED: MethylPREDNISolone 40 mg Vial IVP SCH (10:00)
--- NOTE | 2017-06-16 12:10 | CP.PCM.PN ---
Subjective - Date & Time of Evaluation Date of Evaluation: 06/16/17 Time of Evaluation: 08:00 - Subjective Subjective: less fever/ cough for d/c on po antibiotics Objective - Vital Signs/Intake and Output Vital Signs (last 24 hours): Temp Pulse Resp BP Pulse Ox 97.9 F 62 20 111/72 97 06/16/17 07:51 06/16/17 07:51 06/16/17 07:51 06/16/17 07:51 06/16/17 07:51 Intake and Output: 06/16/17 06/16/17 06:59 18:59 Intake Total 530 Balance 530 - Medications Medications: Current Medications Albuterol/Ipratropium (Duoneb 3 Mg/0.5 Mg (3 Ml) Ud) 3 ml INH RQ6 [facility] Last Admin: 06/16/17 07:09 Dose: 3 ml Amlodipine Besylate (Norvasc) 5 mg PO DAILY [facility] Last Admin: 06/16/17 09:47 Dose: Not Given Budesonide (Pulmicort Respules) 0.5 mg INH RQ12 [facility] Last Admin: 06/16/17 07:09 Dose: 0.5 mg Clopidogrel Bisulfate (Plavix) 75 mg PO DAILY [facility] Last Admin: 06/16/17 09:44 Dose: 75 mg Enoxaparin Sodium (Lovenox) 40 mg SC DAILY [facility] Last Admin: 06/16/17 09:45 Dose: 40 mg Ferrous Sulfate (Feosol) 325 mg PO DAILY [facility] Last Admin: 06/16/17 09:44 Dose: 325 mg Ceftriaxone Sodium 1 gm/ (Sodium Chloride) 100 mls @ 100 mls/hr IVPB DAILY [facility] Last Admin: 06/16/17 09:45 Dose: 100 mls/hr Azithromycin 500 mg/ Dextrose 250 mls @ 250 mls/hr IVPB Q24H [facility] Last Admin: 06/15/17 12:11 Dose: 250 mls/hr Insulin Aspart (Novolog) 0 unit SC ACHS [facility] PRN Reason: Protocol Last Admin: 06/16/17 08:20 Dose: Not Given Losartan Potassium (Cozaar) 100 mg PO DAILY [facility] Last Admin: 06/16/17 09:44 Dose: 100 mg Metformin HCl (Glucophage) 500 mg PO BID [facility] Last Admin: 06/16/17 09:45 Dose: 500 mg Methylprednisolone (Solu-Medrol) 10 mg IVP Q12 [facility] Last Admin: 06/16/17 09:45 Dose: 10 mg Rosuvastatin Calcium (Crestor) 40 mg PO HS [facility] Last Admin: 06/15/17 21:04 Dose: 40 mg - Labs Labs: 06/16/17 06:06 06/16/17 06:06 - Constitutional Appears: Non-toxic, Chronically Ill - Head Exam Head Exam: NORMOCEPHALIC - Eye Exam Eye Exam: PERRL - ENT Exam ENT Exam: Mucous Membranes Dry - Neck Exam Neck Exam: absent: Lymphadenopathy - Respiratory Exam Respiratory Exam: Decreased Breath Sounds - Cardiovascular Exam Cardiovascular Exam: REGULAR RHYTHM - GI/Abdominal Exam GI & Abdominal Exam: Distended, Soft Assessment and Plan (1) Pneumonia Status: Acute (2) Urinary tract infection Status: Acute
--- NOTE | 2017-06-16 14:56 | CP.PCM.PN ---
Objective - Vital Signs/Intake and Output Vital Signs (last 24 hours): Temp Pulse Resp BP Pulse Ox 97.9 F 62 20 111/72 97 06/16/17 07:51 06/16/17 07:51 06/16/17 07:51 06/16/17 07:51 06/16/17 07:51 Intake and Output: 06/16/17 06/16/17 06:59 18:59 Intake Total 530 Balance 530 - Medications Medications: Current Medications Albuterol/Ipratropium (Duoneb 3 Mg/0.5 Mg (3 Ml) Ud) 3 ml INH RQ6 [facility] Last Admin: 06/16/17 13:59 Dose: 3 ml Amlodipine Besylate (Norvasc) 5 mg PO DAILY [facility] Last Admin: 06/16/17 09:47 Dose: Not Given Budesonide (Pulmicort Respules) 0.5 mg INH RQ12 [facility] Last Admin: 06/16/17 07:09 Dose: 0.5 mg Clopidogrel Bisulfate (Plavix) 75 mg PO DAILY [facility] Last Admin: 06/16/17 09:44 Dose: 75 mg Enoxaparin Sodium (Lovenox) 40 mg SC DAILY [facility] Last Admin: 06/16/17 09:45 Dose: 40 mg Ferrous Sulfate (Feosol) 325 mg PO DAILY [facility] Last Admin: 06/16/17 09:44 Dose: 325 mg Ceftriaxone Sodium 1 gm/ (Sodium Chloride) 100 mls @ 100 mls/hr IVPB DAILY [facility] Last Admin: 06/16/17 09:45 Dose: 100 mls/hr Azithromycin 500 mg/ Dextrose 250 mls @ 250 mls/hr IVPB Q24H [facility] Last Admin: 06/16/17 12:56 Dose: 250 mls/hr Insulin Aspart (Novolog) 0 unit SC ACHS [facility] PRN Reason: Protocol Last Admin: 06/16/17 12:55 Dose: Not Given Losartan Potassium (Cozaar) 100 mg PO DAILY [facility] Last Admin: 06/16/17 09:44 Dose: 100 mg Metformin HCl (Glucophage) 500 mg PO BID [facility] Last Admin: 06/16/17 09:45 Dose: 500 mg Methylprednisolone (Solu-Medrol) 10 mg IVP Q12 [facility] Last Admin: 06/16/17 09:45 Dose: 10 mg Rosuvastatin Calcium (Crestor) 40 mg PO HS [facility] Last Admin: 06/15/17 21:04 Dose: 40 mg - Labs Labs: 06/16/17 06:06 06/16/17 06:06 Assessment and Plan - Assessment and Plan (Free Text) Assessment: Patient admitted for pneumonia, seen and examined. Alert and orientedx3, no sob or chest pains. Cleared by DR Brandt, discussed with DR Sandhu, plan to discharge home today on levaquin 500mg po dailyx5 days.
== END 2017-06-16 14:57 | disposition home or self-care (01) | DRG 89 ==
LOC: C.ER 10:36 → C.9E 13:18 → C.3T 15:57 → OBSVTOIN 06-14 13:38
PROVIDERS: ADMIT Internal Medicine; ATTEND Internal Medicine
DX: J18.0 Bronchopneumonia, unspecified organism (principal); J98.11 Atelectasis; E11.65 Type 2 diabetes mellitus with hyperglycemia; E86.0 Dehydration; N39.0 Urinary tract infection, site not specified; E05.90 Thyrotoxicosis, unspecified without thyrotoxic crisis or storm; E78.5 Hyperlipidemia, unspecified; I10 Essential (primary) hypertension; I25.10 Atherosclerotic heart disease of native coronary artery without angina pectoris; J45.909 Unspecified asthma, uncomplicated; Z82.5 Family history of asthma and other chronic lower respiratory diseases